=== PATIENT | male | born 1960 | race Caucasian/White ===

== ENCOUNTER 2018-06-20 00:06 | Emergency (ER) | payer OTHER ==
[~2018-06-20] VITALS: Ht 172.7 cm; Wt 108.9 kg
[2018-06-20] MEDS ORDERED: HYDROCODON-ACE1 EAC7 PO (01:37)
[2018-06-20] MEDS ORDERED: KEFLEX500 M1 PO (01:37)
[2018-06-20 02:10] VITALS: BP 165/76
== END 2018-06-20 02:12 | disposition home or self-care (01) ==
LOC: M.ERS 00:06
DX: S81.812A Laceration without foreign body, left lower leg, initial encounter (principal); S63.591A Other specified sprain of right wrist, initial encounter; E11.9 Type 2 diabetes mellitus without complications; Z95.5 Presence of coronary angioplasty implant and graft; W17.89XA Other fall from one level to another, initial encounter; Y93.89 Activity, other specified; Y92.89 Other specified places as the place of occurrence of the external cause; Y99.8 Other external cause status